=== PATIENT | male | born 1950 | race Caucasian/White ===

== ENCOUNTER → 2021-11-05 | Day surgery (SDC) | payer MEDICARE ==
[~2021-11-05] VITALS: Ht 170.2 cm; Wt 77.1 kg
[~2021-11-05] MED LIST: ASPIRIN EC81 MG PO; ATARAX25 MG PO; CATAPRES0.1 MG PO; DIAZEPAM10 MG PO; DICLOFENAC SODI75 MG PO; FINASTERIDE5 MG PO; FLOMAX0.4 MG PO; FUROSEMIDE 40MG40 MG PO; HCTZ12.5 MG PO; METFORMIN HCL500 MG PO; NEURONTIN400 MG PO; OXY-IR 5MG5 MG PO; OXYCODONE HCL15 MG PO; PERCOCET 5-3251 EACH PO; PRINIVIL10 MG PO; PRINIVIL20 MG PO; TAMSULOSIN HCL0.4 MG PO; ZOCOR10 MG PO
[2021-11-05 06:39] LABS: HCT 43.9 % (42.0-52.0); MCH 31.1 pg (25.0-31.0); MCHC 34.2 g/dL (32.0-36.0); MCV 91.1 fL (78.0-100.0); MPV 9.6 fL (6.0-9.5); RBC 4.82 M/uL (4.70-6.00); RDW 12.8 % (11.5-14.0); WBC 8.4 K/uL (4.0-10.5)
[2021-11-05 07:52] LABS: ALBUMIN 4.1 g/dL (3.4-5.0); BILIRUBIN - TOTAL 0.8 mg/dL (0.2-1.0); BUN/CREAT RATIO (CALC) 13.1 RATIO; CREATININE 1.45 mg/dL (0.67-1.17); GLOBULIN (CALCULATION) 3.6 g/dL; POTASSIUM 5.3 mmol/L (3.5-5.1); TOTAL PROTEIN 7.7 g/dL (6.4-8.2)
== END | disposition home or self-care (01) ==
LOC: FAS 05:56
PROVIDERS: Orthopaedic Surgery
DX: M65.331 Trigger finger, right middle finger (principal); M65.341 Trigger finger, right ring finger; I10 Essential (primary) hypertension; E78.5 Hyperlipidemia, unspecified; F41.9 Anxiety disorder, unspecified; Z88.6 Allergy status to analgesic agent; Z79.84 Long term (current) use of oral hypoglycemic drugs; Z79.899 Other long term (current) drug therapy
CPT/HCPCS: 36415; 80053; J1040; J2250; J2370; J2405; J2704; J3010; J7120

== ENCOUNTER → 2022-03-19 | Day surgery (SDC) | payer MEDICARE ==
[~2022-03-19] VITALS: Ht 170.2 cm; Wt 77.1 kg
[~2022-03-19] MED LIST changes: +BACLOFEN 10MG T10 MG PO; +SEROQUEL300 MG PO
[2022-03-19 09:10] LABS: HGB 16.1 g/dl (13.2-18.0); MCH 32.3 pg (25.0-31.0); MCV 92.2 fL (78.0-100.0); MPV 9.4 fL (6.0-9.5); RBC 4.99 M/uL (4.70-6.00); RDW 12.3 % (11.5-14.0); WBC 9.3 K/uL (4.0-10.5)
[2022-03-19 09:30] LABS: ALBUMIN 4.1 g/dL (3.4-5.0); BILIRUBIN - TOTAL 0.5 mg/dL (0.2-1.0); BUN/CREAT RATIO (CALC) 7.6 RATIO; CREATININE 1.05 mg/dL (0.67-1.17); GLOBULIN (CALCULATION) 3.6 g/dL; POTASSIUM 4.1 mmol/L (3.5-5.1); TOTAL PROTEIN 7.7 g/dL (6.4-8.2)
== END | disposition home or self-care (01) ==
LOC: FAS 03-17 10:30
PROVIDERS: Surgery
DX: K92.1 Melena (principal); K29.60 Other gastritis without bleeding; K57.30 Diverticulosis of large intestine without perforation or abscess without bleeding; B19.20 Unspecified viral hepatitis C without hepatic coma; E78.5 Hyperlipidemia, unspecified; I10 Essential (primary) hypertension; N40.0 Benign prostatic hyperplasia without lower urinary tract symptoms; E11.9 Type 2 diabetes mellitus without complications; Z79.82 Long term (current) use of aspirin
CPT/HCPCS: 36415; 80053; J2704; J7120